=== PATIENT | male | born 1965 | race Caucasian/White ===

== ENCOUNTER 2022-10-20 13:03 | Emergency (ER) | payer SELFPAY ==
[~2022-10-20] VITALS: Ht 180.3 cm; Wt 92.0 kg
[2022-10-20 13:07] VITALS: TEMP 98.1
[2022-10-20 13:24] VITALS: BP 127/77; PULSE 77; RESP 16
[2022-10-20] MEDS ORDERED: IBUPROFEN 600 MG TABLET PO ONE (13:30)
[2022-10-20] MEDS ORDERED: SILVER SULFADIAZINE 1% 25 GM CREAM TP ONE (13:30)
[2022-10-20] MEDS ORDERED: IBUP-1492 PO (13:36)
[2022-10-20] MEDS ORDERED: SILV20CR11 TP (13:36)
== END 2022-10-20 14:24 | disposition home or self-care (01) ==
LOC: EMS 13:04
DX: T25.221A Burn of second degree of right foot, initial encounter (principal); T25.122A Burn of first degree of left foot, initial encounter; F17.210 Nicotine dependence, cigarettes, uncomplicated
CPT/HCPCS: 99282; Z7502; Z7610

== ENCOUNTER 2022-10-22 09:43 | Emergency (ER) | payer OTHER ==
[~2022-10-22] VITALS: Ht 177.8 cm; Wt 90.0 kg
[~2022-10-22 09:43] MED LIST: IBUP-1492 PO; SILV20CR11 TP
[2022-10-22 09:45] VITALS: TEMP 98.3
[2022-10-22] MEDS ORDERED: NEOMYCIN/BACITRACIN/POLYMYXIN B OINTMENT PACKET TP ONE (11:30)
[2022-10-22 11:38] VITALS: BP 100/73; PULSE 72; RESP 16
== END 2022-10-22 12:25 | disposition home or self-care (01) ==
LOC: EMS 09:44
DX: T25.211A Burn of second degree of right ankle, initial encounter (principal); T31.0 Burns involving less than 10% of body surface; F17.210 Nicotine dependence, cigarettes, uncomplicated; Z98.890 Other specified postprocedural states
CPT/HCPCS: 16000; 99282; Z7502; Z7610